=== PATIENT | female | born 1940 | race Caucasian/White ===

== ENCOUNTER 2024-01-06 16:33 | Emergency (ER) | payer MEDICARE, BC ==
[~2024-01-06] VITALS: Ht 165.1 cm; Wt 70.3 kg
[2024-01-06] MEDS ORDERED: ACETAMINOPHEN ES 500 MG TABLET ONE (16:55)
[2024-01-06] MEDS: ACETAMINOPHEN ES 500 MG TABLET PO ONE (16:56)
[2024-01-06 19:10] VITALS: BP 128/75; TEMP 98.3; O2SAT 98
== END 2024-01-06 19:12 | disposition home or self-care (01) ==
LOC: ER 16:44
DX: S00.03XA Contusion of scalp, initial encounter (principal); I10 Essential (primary) hypertension; Z90.89 Acquired absence of other organs; W18.30XA Fall on same level, unspecified, initial encounter; Y93.89 Activity, other specified; Y92.89 Other specified places as the place of occurrence of the external cause; Y99.8 Other external cause status
CPT/HCPCS: 70450-TC

== ENCOUNTER 2025-01-13 09:02 | Emergency (ER) | payer MEDICARE, BC ==
[~2025-01-13] VITALS: Ht 167.6 cm; Wt 68.0 kg
[2025-01-13 10:43] VITALS: BP 139/70; TEMP 97.7; O2SAT 99
== END 2025-01-13 10:43 | disposition home or self-care (01) ==
LOC: ER 09:06
DX: S01.81XA Laceration without foreign body of other part of head, initial encounter (principal); S05.41XA Penetrating wound of orbit with or without foreign body, right eye, initial encounter; I10 Essential (primary) hypertension; Z90.89 Acquired absence of other organs; Z98.51 Tubal ligation status; Z87.09 Personal history of other diseases of the respiratory system; Z86.79 Personal history of other diseases of the circulatory system; W01.0XXA Fall on same level from slipping, tripping and stumbling without subsequent striking against object, initial encounter; Y93.89 Activity, other specified; Y92.89 Other specified places as the place of occurrence of the external cause; Y99.8 Other external cause status
CPT/HCPCS: 70450-TC; 70486-TC